=== PATIENT | male | born 1960 | race Caucasian/White ===

== ENCOUNTER → 2018-04-13 09:11 | Outpatient (CLI) | payer BC ==
[~2018-04-13 09:11] MED LIST: CARAFATE1 G/10 ML PO; COZAAR50 MG PO; DIOVAN160 MG PO; LUNESTA2 M1 PO; NORVASC5 MG PO; PEPCID AC20 MG PO; PROTONIX40 MG PO
[2018-04-18 10:25] VITALS: BMI 23.9
== END | disposition home or self-care (01) ==
LOC: D.CT 09:11
DX: R10.9 Unspecified abdominal pain (principal)

== ENCOUNTER 2018-04-17 18:44 | Inpatient (IN) | payer BC ==
[~2018-04-17] VITALS: Ht 188 cm; Wt 86.0 kg
--- NOTE | ~2018-04-17 | MORECARE ---
CASE MANAGEMENT DISCHARGE SUMMARY PATIENT: BROOKE SILVA UNIT: [id number] ADM DATE: 04/18/18 AGE: 57 : 60 SEX: M ROOM/BED: D.2305 AUTHOR: LIZZETTE,DOC PHYSICIAN: REFERRING PHYSICIAN: ANGELA PORTER MD DATE OF SERVICE: 04/20/18 Discharge Plan Patient Name: BROOKE SILVA Facility: [facility]:[place] : 1960 Planned Disposition: Home Anticipated Discharge Date: Discharge Date: Expected LOS: Initial Reviewer: [email or web address] Initial Review Date: 04/19/2018 Generated: 04/20/18 1:06 pm Comments DCP- Discharge Planning Updated by [email or web address]: Funmilayo High on 04/19/18 1:[address] Patient Name: BROOKE SILVA Admission Status: ER Accout number: [id number] Admission Date: 04-18-2018 : 1960 Admission Diagnosis: Attending: ANGELA PORTER Current LOS: 1 Anticipated DC Date: Planned Disposition: Home Primary Insurance: [employer] [facility] Discharge Planning Comments: CM met with patient at bedside after obtaining verbal consent. Patient plans on returning home with after discharge. Patient denies any discharge needs at this time. CM will continue to follow and assist as needed with discharge planning/ needs. Health Care Coordinator: Funmilayo High DCPIA - Discharge Planning Initial Assessment Updated by [email or web address]: Funmilayo High on 04/19/18 2:39 pm * Is the patient Alert and Oriented? Yes * How many steps to enter\exit or inside your home? * PCP DEJAH * Pharmacy [facility] * Preadmission Environment Home with Family * ADLs Independent * Equipment None * List name and contact numbers for known caregivers / representatives who currently or will assist patient after discharge: SUSAN SILVA - SPOUSE- [phone] * Verbal permission to speak to the caregivers and representatives has been obtained from the patient. N/A * Community resources currently utilized None * Additional services required to return to the preadmission environment? No * Can the patient safely return to the preadmission environment? Yes * Has this patient been hospitalized within the prior 30 days at any hospital? No External Providers External Provider: OTHER-OTHER Next Contact Date: Service Request Date: Service Type: Resolution: Reviewer: Comments: Last DP export: 04/19/18 1:51 Patient Name: BROOKE SILVA Page [id number] at 1207 All edits/amendments must be made on the electronic document DICTATION DATE: 04/20/181205 STEAMING MACHINE OPERATOR: DK 04/20/181205 RPT#: [id number] DC DATE: STATUS: ADM IN [facility] [address] [place] [address] END OF REPORT
--- NOTE | ~2018-04-17 | MORECARE ---
CASE MANAGEMENT DISCHARGE SUMMARY PATIENT: BROOKE SILVA UNIT: [id number] ADM DATE: 04/18/18 AGE: 57 : 60 SEX: M ROOM/BED: D.2305 AUTHOR: LIZZETTE,DOC PHYSICIAN: REFERRING PHYSICIAN: ANGELA PORTER MD DATE OF SERVICE: 04/19/18 Discharge Plan Patient Name: BROOKE SILVA Facility: [facility]:[place] : 1960 Planned Disposition: Home Anticipated Discharge Date: Discharge Date: Expected LOS: Initial Reviewer: [email or web address] Initial Review Date: 04/19/2018 Generated: 04/19/18 3:51 pm Comments DCP- Discharge Planning Updated by [email or web address]: Funmilayo High on 04/19/18 1:[address] Patient Name: BROOKE SILVA Admission Status: ER Accout number: [id number] Admission Date: 04-18-2018 : 1960 Admission Diagnosis: Attending: ANGELA PORTER Current LOS: 1 Anticipated DC Date: Planned Disposition: Home Primary Insurance: [employer] [facility] Discharge Planning Comments: CM met with patient at bedside after obtaining verbal consent. Patient plans on returning home with after discharge. Patient denies any discharge needs at this time. CM will continue to follow and assist as needed with discharge planning/ needs. Senior Quality Assurance Specialist: Funmilayo High DCPIA - Discharge Planning Initial Assessment Updated by [email or web address]: Funmilayo High on 04/19/18 2:39 pm * Is the patient Alert and Oriented? Yes * How many steps to enter\exit or inside your home? * PCP DEJAH * Pharmacy [facility] * Preadmission Environment Home with Family * ADLs Independent * Equipment None * List name and contact numbers for known caregivers / representatives who currently or will assist patient after discharge: SUSAN SILVA - SPOUSE- [phone] * Verbal permission to speak to the caregivers and representatives has been obtained from the patient. N/A * Community resources currently utilized None * Additional services required to return to the preadmission environment? No * Can the patient safely return to the preadmission environment? Yes * Has this patient been hospitalized within the prior 30 days at any hospital? No Last DP export: 04/19/18 1:41 Patient Name: BROOKE SILVA Page 19506 at 1451 All edits/amendments must be made on the electronic document DICTATION DATE: 04/19/181450 TELEHEALTH COORDINATOR: DK 04/19/181450 RPT#: [id number] DC DATE: STATUS: ADM IN [facility] [address] [place] [address] END OF REPORT
--- NOTE | ~2018-04-17 | MORECARE ---
CASE MANAGEMENT DISCHARGE SUMMARY PATIENT: BROOKE SILVA UNIT: [id number] ADM DATE: 04/18/18 AGE: 57 : 60 SEX: M ROOM/BED: D.2305 AUTHOR: AUREA CROCKER PHYSICIAN: REFERRING PHYSICIAN: ANGELA PORTER MD DATE OF SERVICE: 04/19/18 Discharge Plan Patient Name: BROOKE SILVA Facility: [facility]:[place] : 1960 Planned Disposition: Home Anticipated Discharge Date: Discharge Date: Expected LOS: Initial Reviewer: [email or web address] Initial Review Date: 04/19/2018 Generated: 04/19/18 3:41 pm DCPIA - Discharge Planning Initial Assessment Updated by [email or web address]: Funmilayo High on 04/19/18 2:39 pm * Is the patient Alert and Oriented? Yes * How many steps to enter\exit or inside your home? * PCP DEJAH * Pharmacy [facility] * Preadmission Environment Home with Family * ADLs Independent * Equipment None * List name and contact numbers for known caregivers / representatives who currently or will assist patient after discharge: SUSAN SILVA - SPOUSE- [phone] * Verbal permission to speak to the caregivers and representatives has been obtained from the patient. N/A * Community resources currently utilized None * Additional services required to return to the preadmission environment? No * Can the patient safely return to the preadmission environment? Yes * Has this patient been hospitalized within the prior 30 days at any hospital? No Patient Name: BROOKE SILVA Page 99090 at 1441 All edits/amendments must be made on the electronic document DICTATION DATE: 04/19/18 144 CUE WORKER: DK 04/19/18 1441 RPT#: [id number] DC DATE: STATUS: ADM IN [facility] [address] [place] [address] END OF REPORT
--- NOTE | ~2018-04-17 | MORECARE ---
CASE MANAGEMENT DISCHARGE SUMMARY PATIENT: BROOKE SILVA UNIT: [id number] ADM DATE: 04/18/18 AGE: 57 : 60 SEX: M ROOM/BED: D.2305 AUTHOR: LIZZETTE,DOC PHYSICIAN: REFERRING PHYSICIAN: ANGELA PORTER MD DATE OF SERVICE: 04/21/18 Discharge Plan Patient Name: BROOKE SILVA Facility: [facility]:[place] : 1960 Planned Disposition: Home Anticipated Discharge Date: Discharge Date: 04/20/2018 Expected LOS: Initial Reviewer: [email or web address] Initial Review Date: 04/19/2018 Generated: 04/21/18 8:26 pm Comments DCP- Discharge Planning Updated by [email or web address]: Funmilayo High on 04/19/18 1:[address] Patient Name: BROOKE SILVA Admission Status: ER Accout number: [id number] Admission Date: 04-18-2018 : 1960 Admission Diagnosis: Attending: ANGELA PORTER Current LOS: 1 Anticipated DC Date: Planned Disposition: Home Primary [facility] [employer] [facility] Discharge Planning Comments: CM met with patient at bedside after obtaining verbal consent. Patient plans on returning home with after discharge. Patient denies any discharge needs at this time. CM will continue to follow and assist as needed with discharge planning/ needs. Auxiliary Engineer: Funmilayo High DCPIA - Discharge Planning Initial Assessment Updated by [email or web address]: Funmilayo High on 04/19/18 2:39 pm * Is the patient Alert and Oriented? Yes * How many steps to enter\exit or inside your home? * PCP DEJAH * Pharmacy [facility] * Preadmission Environment Home with Family * ADLs Independent * Equipment None * List name and contact numbers for known caregivers / representatives who currently or will assist patient after discharge: SUSAN SILVA - SPOUSE- [phone] * Verbal permission to speak to the caregivers and representatives has been obtained from the patient. N/A * Community resources currently utilized None * Additional services required to return to the preadmission environment? No * Can the patient safely return to the preadmission environment? Yes * Has this patient been hospitalized within the prior 30 days at any hospital? No Last DP export: 04/20/18 11:07 Patient Name: BROOKE SILVA Page 96884 at 1926 All edits/amendments must be made on the electronic document DICTATION DATE: 04/21/181924 PROGRAMMER DEVELOPER: DK 04/21/181924 RPT#: [id number] DC DATE:04/20/18 STATUS: DIS IN [facility] [address] [place] [address] END OF REPORT
[2018-04-17] MEDS ORDERED: DIOVAN160 MG PO (19:14)
[2018-04-17] MEDS ORDERED: NORVASC5 MG PO (19:14)
[2018-04-17] MEDS ORDERED: LUNESTA2 M1 PO (19:15)
[2018-04-17 19:27] VITALS: BP 72/49
[2018-04-17 19:30] VITALS: BP 95/51
[2018-04-17 19:39] LABS: BASOPHILS 0.3 % (0-2); EOSINOPHILS 1.7 % (0-7); HEMATOCRIT 24.6 % (42.0-54.0); HEMOGLOBIN 8.6 g/dL (13.5-17.5); IMMATURE GRANULOCYTES 0.3 % (0-5); LYMPHOCYTES 15.2 % (15-50); MCH 33.2 pg (26.0-34.0); MONOCYTES 4.7 % (2-11); NEUTROPHILS 77.8 % (40-80); PLATELET COUNT 167 10x3/uL (130-400); RBC 2.59 10x6/uL (4.20-6.10); WBC 11.6 10x3/uL (4.8-10.8)
[2018-04-17 19:54] LABS: ALBUMIN 3.4 g/dL (3.4-5.0); ALKALINE PHOSPHATASE 42 U/L (46-116); ALT (SGPT) 20 U/L (10-68); BILIRUBIN - TOTAL 0.43 mg/dL (0.2-1.3); CALC OSMOLALITY 279 mosm/kg (275-300); CALCIUM 8.4 mg/dL (8.5-10.1); CARBON DIOXIDE 25.4 mmol/L (21.0-32.0); CHLORIDE - SERUM 101 mmol/L (98-107); GLUCOSE 140 mg/dL (74-106); POTASSIUM - SERUM 4.6 mmol/L (3.5-5.1); PROTEIN - SERUM 6.5 g/dL (6.4-8.2); SODIUM 134 mmol/L (136-145); UREA NITROGEN 41 mg/dL (7-18); eGFR NON AFRICAN AMERICAN 82 mL/min (90-120)
[2018-04-17 19:55] LABS: AMYLASE - SERUM 95 U/L (25-115); LIPASE 254 U/L (73-393)
[2018-04-17 19:57] LABS: TROPONIN-I < 0.017 ng/mL (0.000-0.060)
[2018-04-17 20:00] VITALS: BP 153/87
[2018-04-17 20:30] VITALS: BP 160/62
[2018-04-17 20:33] LABS: INR 1.06 (0.85-1.17); PROTIME 13.4 SECONDS (11.6-15.0)
[2018-04-17 20:55] LABS: APPEARANCE CLEAR (CLEAR); BILIRUBIN NEGATIVE (NEGATIVE); COLOR YELLOW (YELLOW); GLUCOSE NEGATIVE (NEGATIVE); KETONE SMALL mg/dL (NEGATIVE); NITRITE NEGATIVE (NEGATIVE); PROTEIN NEGATIVE (NEGATIVE); SPECIFIC GRAVITY 1.015 (1.005-1.020); UROBILINOGEN NORMAL (NORMAL)
[2018-04-17 22:30] VITALS: BP 152/75; BMI 23.5
[2018-04-17 23:14] LABS: HEMATOCRIT 21.9 % (42.0-54.0); HEMOGLOBIN 7.7 g/dL (13.5-17.5)
[2018-04-18] VITALS (12 sets, daily range): BP systolic 129–161; BP diastolic 73–91; Ht 188 cm; Wt 86.0 kg
[2018-04-18 06:37] LABS: BASOPHILS 0.1 % (0-2); EOSINOPHILS 0.9 % (0-7); IMMATURE GRANULOCYTES 0.3 % (0-5); MCH 32.8 pg (26.0-34.0); MCHC 35.2 g/dL (31.0-37.0); MEAN PLATELET VOLUME 8.7 fL (7.4-10.4); MONOCYTES 9.1 % (2-11); NEUTROPHILS 62.6 % (40-80); RBC 2.87 10x6/uL (4.20-6.10); RDW 12.5 % (11.5-14.5)
[2018-04-18 06:44] LABS: HEMATOCRIT 26.7 % (42.0-54.0); HEMOGLOBIN 9.4 g/dL (13.5-17.5); PLATELET COUNT 127 10x3/uL (130-400); WBC 7.4 10x3/uL (4.8-10.8)
[2018-04-18 06:46] LABS: ALKALINE PHOSPHATASE 35 U/L (46-116); ALT (SGPT) 16 U/L (10-68); AMYLASE - SERUM 74 U/L (25-115); CALC OSMOLALITY 274 mosm/kg (275-300); CALCIUM 7.6 mg/dL (8.5-10.1); CARBON DIOXIDE 26.1 mmol/L (21.0-32.0); CHLORIDE - SERUM 104 mmol/L (98-107); CREATININE - SERUM 0.9 mg/dL (0.6-1.3); GLUCOSE 106 mg/dL (74-106); LIPASE 132 U/L (73-393); POTASSIUM - SERUM 3.8 mmol/L (3.5-5.1); PROTEIN - SERUM 5.9 g/dL (6.4-8.2); SODIUM 136 mmol/L (136-145); UREA NITROGEN 20 mg/dL (7-18); eGFR NON AFRICAN AMERICAN > 90 mL/min (90-120)
[2018-04-18 07:22] LABS: INR 1.01 (0.85-1.17); PROTIME 12.9 SECONDS (11.6-15.0)
[2018-04-19] VITALS (11 sets, daily range): BP systolic 98–153; BP diastolic 53–98
[2018-04-19 05:26] LABS: BASOPHILS 0.4 % (0-2); HEMATOCRIT 29.6 % (42.0-54.0); HEMOGLOBIN 10.3 g/dL (13.5-17.5); IMMATURE GRANULOCYTES 0.2 % (0-5); LYMPHOCYTES 28.6 % (15-50); MCH 32.2 pg (26.0-34.0); MCHC 34.8 g/dL (31.0-37.0); MCV 92.5 fL (80.0-100.0); MEAN PLATELET VOLUME 8.9 fL (7.4-10.4); MONOCYTES 7.5 % (2-11); NEUTROPHILS 60.3 % (40-80); PLATELET COUNT 139 10x3/uL (130-400); RDW 14.1 % (11.5-14.5)
[2018-04-19 05:34] LABS: INR 0.97 (0.85-1.17); PROTIME 12.5 SECONDS (11.6-15.0)
[2018-04-19 05:50] LABS: BILIRUBIN - TOTAL 0.46 mg/dL (0.2-1.3); CALCIUM 7.9 mg/dL (8.5-10.1); CARBON DIOXIDE 28.8 mmol/L (21.0-32.0); CREATININE - SERUM 1.1 mg/dL (0.6-1.3); POTASSIUM - SERUM 3.8 mmol/L (3.5-5.1); PROTEIN - SERUM 5.8 g/dL (6.4-8.2)
[2018-04-19 06:12] LABS: WBC 5.3 10x3/uL (4.8-10.8)
[2018-04-20 00:02] VITALS: BP 138/76
[2018-04-20 03:00] VITALS: BP 141/90
[2018-04-20 06:00] LABS: BASOPHILS 0.4 % (0-2); HEMATOCRIT 29.7 % (42.0-54.0); HEMOGLOBIN 10.3 g/dL (13.5-17.5); LYMPHOCYTES 26.2 % (15-50); MCH 32.2 pg (26.0-34.0); MCHC 34.7 g/dL (31.0-37.0); MCV 92.8 fL (80.0-100.0); MEAN PLATELET VOLUME 8.7 fL (7.4-10.4); MONOCYTES 10.2 % (2-11); NEUTROPHILS 59.2 % (40-80); PLATELET COUNT 156 10x3/uL (130-400); RDW 13.9 % (11.5-14.5); WBC 5.5 10x3/uL (4.8-10.8)
[2018-04-20 06:17] LABS: CALC OSMOLALITY 279 mosm/kg (275-300); CALCIUM 7.8 mg/dL (8.5-10.1); CARBON DIOXIDE 25.9 mmol/L (21.0-32.0); CHLORIDE - SERUM 107 mmol/L (98-107); GLUCOSE 113 mg/dL (74-106); POTASSIUM - SERUM 3.5 mmol/L (3.5-5.1); SODIUM 141 mmol/L (136-145); eGFR NON AFRICAN AMERICAN 82 mL/min (90-120)
[2018-04-20 06:21] LABS: UREA NITROGEN 6 mg/dL (7-18)
[2018-04-20 07:00] VITALS: BP 141/95
[2018-04-20 11:00] VITALS: BP 134/88
[2018-04-20 11:07] VITALS: BP 138/76
[2018-04-20] MEDS ORDERED: CARAFATE1 G/10 ML PO (11:37)
[2018-04-20] MEDS ORDERED: PROTONIX40 MG PO (11:37)
[2018-04-20] MEDS ORDERED: COZAAR50 MG PO (11:37)
[2018-04-20] MEDS ORDERED: PEPCID AC20 MG PO (11:37)
== END 2018-04-20 12:07 | disposition home or self-care (01) | DRG 377 ==
LOC: D.ER 18:44 → D.ICU 20:21 → OBSVTIME 20:21 → D.ICU 04-18 08:10
PROVIDERS: Family Medicine; Internal Medicine Gastroenterology
PROC: 3E0G8TZ Introduction of Destructive Agent into Upper GI, Via Natural or Artificial Opening Endoscopic (ICD-10-PCS; 2018-04-18)
PROC: 0DB78ZX Excision of Stomach, Pylorus, Via Natural or Artificial Opening Endoscopic, Diagnostic (ICD-10-PCS; principal; 2018-04-18 05:16)
DX: K26.4 Chronic or unspecified duodenal ulcer with hemorrhage (principal); R57.1 Hypovolemic shock; D62 Acute posthemorrhagic anemia; R10.9 Unspecified abdominal pain; K25.4 Chronic or unspecified gastric ulcer with hemorrhage; K92.1 Melena; R42 Dizziness and giddiness; R53.83 Other fatigue; R55 Syncope and collapse; I95.9 Hypotension, unspecified; K20.9 Esophagitis, unspecified; I10 Essential (primary) hypertension; R00.0 Tachycardia, unspecified; K21.9 Gastro-esophageal reflux disease without esophagitis

== ENCOUNTER → 2018-06-20 09:15 | Outpatient (CLI) | payer BC ==
[2018-04-18 10:25] VITALS: BMI 23.9
[2018-06-20 09:49] LABS: BASOPHILS 0.3 % (0-2); EOSINOPHILS 2.4 % (0-7); HEMATOCRIT 35.6 % (42.0-54.0); HEMOGLOBIN 11.7 g/dL (13.5-17.5); LYMPHOCYTES 37.4 % (15-50); MCH 27.9 pg (26.0-34.0); MCHC 32.9 g/dL (31.0-37.0); MEAN PLATELET VOLUME 9.5 fL (7.4-10.4); MONOCYTES 14.7 % (2-11); NEUTROPHILS 45.2 % (40-80); PLATELET COUNT 171 10x3/uL (130-400); RBC 4.19 10x6/uL (4.20-6.10); RDW 14.2 % (11.5-14.5); WBC 3.8 10x3/uL (4.8-10.8)
== END | disposition home or self-care (01) ==
LOC: D.LAB 09:15
PROVIDERS: Internal Medicine Gastroenterology
DX: D64.9 Anemia, unspecified (principal); K92.1 Melena

== ENCOUNTER 2019-12-24 11:32 | Emergency (ER) | payer BC ==
[~2019-12-24] VITALS: Ht 188 cm; Wt 86.4 kg
[2019-12-24 11:46] VITALS: Ht 188 cm; Wt 86.4 kg
[2019-12-24] MEDS ORDERED: HYDROCODON-ACE1 EAC2 PO (14:20)
[2019-12-24 15:06] VITALS: BP 136/72
== END 2019-12-24 15:06 | disposition home or self-care (01) ==
LOC: D.ER 11:32
DX: S82.491A Other fracture of shaft of right fibula, initial encounter for closed fracture (principal); M79.661 Pain in right lower leg; I10 Essential (primary) hypertension; W19.XXXA Unspecified fall, initial encounter; Y93.9 Activity, unspecified; Y92.9 Unspecified place or not applicable